=== PATIENT | female | born 1950 | race Caucasian/White ===

== ENCOUNTER 2023-08-16 11:27 | Outpatient (CLI) | payer OTHER | END 2023-08-16 11:28 | disposition home or self-care (01) | LOC: SCSRAD 11:27 | PROVIDERS: ATTEND Family Medicine | DX: R05.9 Cough, unspecified (principal) | CPT/HCPCS: 71046 ==

== ENCOUNTER 2024-05-15 11:09 | Outpatient (CLI) | payer OTHER | END 2024-05-15 11:10 | disposition home or self-care (01) | LOC: SCSRAD 11:09 | PROVIDERS: ATTEND Family Medicine | DX: R05.9 Cough, unspecified (principal); M25.512 Pain in left shoulder; M25.551 Pain in right hip; M19.012 Primary osteoarthritis, left shoulder; M16.11 Unilateral primary osteoarthritis, right hip | CPT/HCPCS: 71046 ==